=== PATIENT | female | born 1970 | race Caucasian/White ===

== ENCOUNTER 2019-12-28 06:27 | Day surgery (SDC) | payer MEDICARE ==
[~2019-12-28] VITALS: Ht 167.6 cm; Wt 113.4 kg
[~2019-12-28 06:27] MED LIST: HUMULIN N100 U/ML SQ; ZOLOFT100 MG PO
[2019-12-28 07:20] LABS: CALC OSMOLALITY 279 mosm/kg (275-300); CALCIUM 9.9 mg/dL (8.5-10.1); CARBON DIOXIDE 28.9 mmol/L (21.0-32.0); CHLORIDE - SERUM 100 mmol/L (98-107); CREATININE - SERUM 0.8 mg/dL (0.6-1.3); GLUCOSE 166 mg/dL (74-106); SODIUM 137 mmol/L (136-145); UREA NITROGEN 19 mg/dL (7-18); eGFR NON AFRICAN AMERICAN 81 mL/min (90-120)
[2019-12-28 07:32] LABS: HEMATOCRIT 38.2 % (36.0-48.0); HEMOGLOBIN 12.2 g/dL (12-16); MCH 24.4 pg (26.0-34.0); MCHC 31.9 g/dL (31.0-37.0); MCV 76.4 fL (80.0-100.0); MEAN PLATELET VOLUME 8.4 fL (7.4-10.4); RDW 16.8 % (11.5-14.5); WBC 7.5 10x3/uL (4.8-10.8)
[2019-12-28 07:52] VITALS: BP 115/64; Ht 167.6 cm; Wt 113.4 kg
--- NOTE | 2019-12-28 08:03 | NUR ---
I WAS TOLD BY FAMILY THAT PT HAS YEAST INFECTION AND WAS TAKING DIFLUCAN BUT HAS NOT BEEN TAKING IT FOR A WHILE. CALLED SURGERY DESK TO INFORM THEM.
[2019-12-28 08:11] LABS: HCG URINE NEGATIVE (NEGATIVE)
[2019-12-29 12:09] LABS: AFB SPECIMEN PROCESSING Concentration (())
[2019-12-30 10:09] LABS: ACID FAST SMEAR Negative (()); FUNGUS STAIN Final report (())
--- NOTE | 2019-12-30 15:51 | OP ---
PATIENT NAME: MONI SHERMAN MEDICAL RECORD: [id number] :72 LOCATION:D.OPS ADMISSION DATE: SURGEON: NILSON KEMP MD DATE OF OPERATION: 12/28/2019 PREOPERATIVE DIAGNOSIS: Cervical adenopathy. POSTOPERATIVE DIAGNOSIS: Cervical adenopathy. PROCEDURE: Right cervical node biopsy. SURGEON: Nilson Kemp MD ANESTHESIA: General orotracheal. BLOOD LOSS: 1 cc. SPECIMENS: Multiple right cervical lymph nodes. COMPLICATIONS: None. DRAINS: None. DISPOSITION: Recovery stable. Frozen section diagnosis lymphoma. PROCEDURE NOTE: She was brought to the operating room and placed in supine position, sedated and intubated by anesthesia. Head was turned slightly to the left. Right neck was prepped and draped in usual sterile fashion. She had matted jugulodigastric nodes very bulky and then she had a solitary 2 cm right posterior node, it was isolated rubbery consistency and seemed viable. That area was cleaned with alcohol and injected with 1% lidocaine with 1:100,000 epinephrine and 0.5 cc as well as a crease up higher anterior to the SCM to access the jugular access digastric nodes. The neck was prepped and draped in the usual sterile fashion. Posteriorly, incision was made with a 15 blade, taken through the skin and this easily and bluntly dissected out a lymph node 2 cm In size. This was sent for pathology. However, on frozen section, this was almost all necrotic, it seemed like a perfectly viable 2 cm node, but was not able to make a diagnosis based on that and was considering the possibility of some kind of infection. There were no other nodes accessible through that incision, so that was closed with interrupted subcutaneous 5-0 Vicryl. There was no bleeding. Then, another incision was made anterior to the SCM. This was taken down through the platysma. The anterior border of the SCM was identified. A tonsil clamp was used to spread and expose the matted lymph nodes. It was easy to dissect out this big conner of lymph nodes. The inferior most one just with my finger and pulled out a 2 cm node. This was sent for pathology and while waiting for that frozen, I removed one above that, it was about 3-4 cm in size, nice round, white capsule. There was really no bleeding associated with that. On those, the frozen section completely viable and consistent almost certainly with lymphoma. He felt like there was plenty of specimen. He went ahead and sent some for cultures, AFB, etc., but felt like this was most likely a lymphoma. The wound was irrigated repeatedly saline carefully inspected. It was clean and dry. The wound was closed with interrupted subcutaneous 5-0 Vicryl and Steri-Strips. Once the skin was cleaned out, Steri-Strips with Mastisol were applied. She was awakened, extubated, and transported to recovery in good condition. No complications. OPERATIVE REPORT [id number] MONI SHERMAN TRANSINT:[id number] Voice Confirmation ID: [id number] DOCUMENT ID: [id number] NILSON KEMP MD at 1551 CC: [id number] DICTATION DATE: 12/28/19 1321 [employer] OFFICER: 12/28/19 2149 [facility] 12/28/19 [id number] [place] [address]
--- NOTE | 2019-12-30 15:51 | HP ---
PATIENT: MONI SHERMAN MEDICAL RECORD: [id number] ACCOUNT: [id number] LOCATION:[facility] : 72 ADMISSION DATE: 12/28/19 PCP: TON ALONSO MD HISTORY AND PHYSICAL EXAMINATION HISTORY OF PRESENT ILLNESS: Ms. Sherman is a 49-year-old female with cervical adenopathy, FNA showed lymphocytes, but was not diagnostic. She has been admitted for cervical node biopsy. She also has a left groin mass. General surgery is going to take a look at, consider biopsy of that at that time. PAST MEDICAL HISTORY: Includes diabetes. CURRENT MEDICATIONS: Insulin. ALLERGIES: No known drug allergies. PHYSICAL EXAMINATION: GENERAL: She is alert and oriented, fairly good historian. FACE: Normal, symmetric, no lesions. EYES: Sclerae and conjunctivae are normal. EARS: Canals and TMs are normal. NOSE: No masses, polyps or drainage. ORAL CAVITY AND OROPHARYNX: Tongue protrudes in midline. Pharynx normal. No masses or lesions. NECK: She has got an added right cervical adenopathy, fairly bulky. CHEST: Clear. CARDIOVASCULAR: Regular rate and rhythm, no murmur. IMPRESSION: Cervical adenopathy. PLAN: Right cervical node biopsy. General surgeon is going to take a look at the groin mass as well, which I think is related. TRANSINT:[id number] Voice Confirmation ID: [id number] DOCUMENT ID: [id number] TON ALONSO MD at 1551 CC: [id number] DICTATION DATE: 12/24/19 1328 [employer] CROSSCUTTER: 12/24/19 1352 [facility] 12/28/19 [id number] [place] [address]
== END 2019-12-28 15:00 | disposition home or self-care (01) ==
LOC: D.OPS 06:27 → D.PAN 09:45 → D.OPS 09:45 → D.PAN 09:50 → D.OPS 15:00
PROVIDERS: Anesthesiology; ATTEND Otolaryngology
DX: R59.9 Enlarged lymph nodes, unspecified (principal); E11.9 Type 2 diabetes mellitus without complications; Z79.4 Long term (current) use of insulin